=== PATIENT | female | born 2000 | race Caucasian/White ===

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

== ENCOUNTER 2019-03-18 08:44 | Emergency (ER) | payer OTHER ==
--- NOTE | 2019-03-18 09:06 | ED ---
- HPI Summary HPI Summary: 19 year old female LMP january 22 presents for rule out ectopic. She states went to center yesterday and unable to see fetus. She denies abdominal pain. No vaginal bleeding. No nausea and no vomiting. She states she believes she is not that far along. No urinary symptoms. No fevers. - History of Current Complaint Chief Complaint: EDOBProblems Stated Complaint: R/O ECTOPIC PER PT Time Seen by Provider: 03/18/19 08:50 Pain Intensity: 0 - Assessment Hx Now: No Hx Hysterectomy: No - Additional Pertinent History Primary Care Physician: [id number] - Allergies/Home Medications Allergies/Adverse Reactions: Allergies Allergy/AdvReac Type Severity Reaction Status Date / Time fluoxetine [From Prozac] Allergy See Comment Verified 03/18/19 08:58 Home Medications: Home Medications NK [No Home Medications Reported] 03/18/19 [History Confirmed 03/18/19] PMH/Surg Hx/FS Hx/Imm Hx Endocrine/Hematology History: Denies: Hx Anticoagulant Therapy, Hx Diabetes, Hx Thyroid Disease Cardiovascular History: Denies: Hx Hypertension, Hx Pacemaker/ICD Respiratory History: Reports: Hx Asthma - as a child Denies: Hx Chronic Obstructive Pulmonary Disease (COPD) GI History: Denies: Hx Ulcer History: Denies: Hx Renal Disease Musculoskeletal History: Denies: Hx Rheumatoid Arthritis, Hx Osteoporosis Sensory History: Reports: Hx Contacts or Glasses Denies: Hx Hearing Aid Opthamlomology History: Reports: Hx Contacts or Glasses Neurological History: Denies: Hx Dementia, Hx Seizures Psychiatric History: Reports: Hx Anxiety, Hx Attention Deficit Hyperactivity Disorder, Hx Depression, Hx Inpatient Treatment, Hx Community Mental Health Tx, Hx Suicide Attempt Denies: Hx Eating Disorder, Hx of Violent Episodes Against Others, Hx Substance Abuse - Surgical History Surgery Procedure, Year, and Place: wisdom teeth - Immunization History Date of Tetanus Vaccine: Up to Date Immunizations Up to Date: Yes Infectious Disease History: No Infectious Disease History: Denies: Hx Clostridium Difficile, Hx Hepatitis, Hx Human Immunodeficiency Virus (HIV), Hx of Known/Suspected MRSA, Hx Tuberculosis, Hx Known/Suspected VRE , Hx Known/Suspected VRSA, History Other Infectious Disease, Traveled Outside the [place] in Last 30 Days - Family History Known Family History: Positive: Non-Contributory - Social History Alcohol Use: Weekly Hx Substance Use: Yes Substance Use Type: Reports: Marijuana Substance Use Comment - Amount & Last Used: daily Hx Tobacco Use: Yes Smoking Status (MU): Light Every Day Tobacco Smoker Type: Cigarettes Amount Used/How Often: 1/4 PPD Have You Smoked in the Last Year: Yes Review of Systems Negative: Fever Negative: Chest Pain Negative: Shortness Of Breath Negative: Abdominal Pain All Other Systems Reviewed And Are Negative: Yes Physical Exam - Physical Exam Triage Information Reviewed: Yes Vital Signs Reviewed: Yes Appearance: Positive: Well-Appearing Skin: Positive: Warm, Dry Head/Face: Positive: Normal Head/Face Inspection Eyes: Positive: Normal, Conjunctiva Clear ENT: Positive: Pharynx normal Respiratory/Lung Sounds: Positive: Clear to Auscultation, Breath Sounds Present Cardiovascular: Positive: Normal, RRR Abdomen Description: Positive: Nontender, Soft Bowel Sounds: Positive: Present Musculoskeletal: Positive: Normal Neurological: Positive: Normal Psychiatric: Positive: Normal Diagnostics - Vital Signs Vital Signs Temp Pulse Resp BP Pulse Ox 03/18/19 09:03 72 99 03/18/19 08:47 98.1 F 71 16 119/69 98 - Laboratory Result Diagrams: 03/18/19 08:59 03/18/19 08:59 Lab Statement: Any lab studies that have been ordered have been reviewed, and results considered in the medical decision making process. Course/Dx - Course Course Of Treatment: 19 year old female LMP january 22 presents for rule out ectopic. She states went to center yesterday and unable to see fetus. She denies abdominal pain. No vaginal bleeding. No nausea and no vomiting. She states she believes she is not that far along. No urinary symptoms. No fevers. On exam nontender abdomen. hcg 700 which is too small to see fetus. discussed results with patient as has no pain will not get u/s. told follow up with ob. patient understand and agrees with plan. - Differential Diagnosis/HQI/PQRI: Ectopic , Intrauterine , Early - Diagnoses Provider Diagnoses: Discharge - Sign-Out/Discharge Documenting (check all that apply): Patient Departure Patient Received Moderate/Deep Sedation with Procedure: No - Discharge Plan Condition: Good Disposition: HOME Patient Education Materials: First Trimester (ED) Referrals: Kristian Best NP [Primary Care Provider] - Humberto Darden MD [Medical Doctor] - Additional Instructions: it is too early to see a at this point Return to ED if develop abd pain or vaginal bleeding or any new or worsening symptoms Follow up with ob - Billing Disposition and Condition Condition: GOOD Disposition: Home
[2019-03-18 09:13] LABS: ABS Eosinophils 0.1 10^3/ul (0-0.6); ABS Lymphocytes 1.7 10^3/ul (1.0-4.8); ABS Monocytes 0.3 10^3/ul (0-0.8); ABS Neutrophils 2.1 10^3/ul (1.5-7.7); Eosinophil % 3.1 %; Hematocrit 40 % (35-47); Hemoglobin 13.4 g/dL (12.0-16.0); Lymphocyte % 39.6 %; Mean Corpuscular HGB Conc 34 g/dL (31-36); Mean Corpuscular Hemoglobin 28 pg (27-31); Mean Corpuscular Volume 83 fL (80-97); Mean Platelet Volume 7.6 fL (7.4-10.4); Platelet Count 233 10^3/uL (150-450); Red Blood Count 4.84 10^6 /uL (3.70-4.87); Red Cell Distribution Width 15 % (10-15); White Blood Count 4.4 10^3/uL (3.5-10.8)
[2019-03-18 09:38] LABS: HCG Pregnancy 781.57 mIU/mL
[2019-03-18 10:00] LABS: Albumin 4.1 g/dL (3.2-5.2); Albumin/Globulin Ratio 1.3 (1-3); BUN/Creatinine Ratio 17.9 (8-20); Calcium 9.5 mg/dL (8.6-10.3); EGFR African American 113.9 (>60); EGFR Non-African American 94.2 (>60); Globulin 3.2 g/dL (2-4); Potassium 4.2 mmol/L (3.5-5.0); Total Bilirubin 0.3 mg/dL (0.2-1.0); Total Protein 7.3 g/dL (6.4-8.9)
[2019-03-18 10:05] VITALS: BP 111/67
[2019-03-18 10:27] LABS: Urine Appearance Cloudy; Urine Bilirubin Negative (Negative); Urine Blood Negative (Negative); Urine Color Yellow; Urine Glucose Negative (Negative); Urine Ketones Negative (Negative); Urine Nitrite Negative (Negative); Urine Protein Negative (Negative); Urine Urobilinogen Negative (Negative)
== END 2019-03-18 10:05 | disposition home or self-care (01) ==
LOC: ED 08:44
DX: Z34.90 Encounter for supervision of normal pregnancy, unspecified, unspecified trimester (principal); O99.330 Smoking (tobacco) complicating pregnancy, unspecified trimester; F17.210 Nicotine dependence, cigarettes, uncomplicated; Z3A.00 Weeks of gestation of pregnancy not specified
CPT/HCPCS: 36415; 80053; 81003; 84702; 85025; 86850; 86900; 86901; 99282

== ENCOUNTER 2019-03-22 10:14 | Emergency (ER) | payer OTHER ==
[2019-03-22 12:47] LABS: ABS Eosinophils 0.2 10^3/ul (0-0.6); ABS Lymphocytes 1.6 10^3/ul (1.0-4.8); ABS Monocytes 0.4 10^3/ul (0-0.8); ABS Neutrophils 3.8 10^3/ul (1.5-7.7); Eosinophil % 2.7 %; Hematocrit 42 % (35-47); Hemoglobin 13.8 g/dL (12.0-16.0); Lymphocyte % 26.7 %; Mean Corpuscular HGB Conc 33 g/dL (31-36); Mean Corpuscular Hemoglobin 28 pg (27-31); Mean Corpuscular Volume 83 fL (80-97); Mean Platelet Volume 7.4 fL (7.4-10.4); Platelet Count 220 10^3/uL (150-450); Red Blood Count 5.03 10^6 /uL (3.70-4.87); Red Cell Distribution Width 15 % (10-15); White Blood Count 5.9 10^3/uL (3.5-10.8)
[2019-03-22 12:55] LABS: Activated Partial Thrombo Time 34.8 seconds (26.0-38.0); INR 0.92 (0.82-1.09)
[2019-03-22 13:04] LABS: Albumin 4.4 g/dL (3.2-5.2); Albumin/Globulin Ratio 1.6 (1-3); BUN/Creatinine Ratio 20.7 (8-20); Calcium 10.2 mg/dL (8.6-10.3); EGFR African American 160.4 (>60); EGFR Non-African American 132.5 (>60); Globulin 2.8 g/dL (2-4); Potassium 4.5 mmol/L (3.5-5.0); Total Bilirubin 0.3 mg/dL (0.2-1.0); Total Protein 7.2 g/dL (6.4-8.9)
[2019-03-22 15:28] VITALS: BP 122/75
[2019-03-22] MEDS ORDERED: Lactated Ringers 1000 ML Bag* 1,000 ML IV SCH (16:00)
--- NOTE | 2019-03-23 06:23 | ED ---
Abdominal Pain/Female - HPI Summary HPI Summary: Patient is a 4 weeks female presenting to the ED with bilateral lower abdominal cramping and bleeding times one day. She states the bleeding began as spotting and developed into a large amount of bleeding with clots over the past 5-6 hours. She denies any nausea or vomiting. Denies any fevers, sweats, chills. Patient states she is otherwise healthy. She denies any dizziness, fatigue or any other symptoms. - History of Current Complaint Chief Complaint: EDVaginalBleeding Stated Complaint: "3 WEEKS W/BLEEDING PER PT" Time Seen by Provider: 03/22/19 11:10 Hx Obtained From: Family/Chemical Librarian Hx Last Menstrual Period: 11/25/18 ?: No Onset/Duration: Sudden Onset Timing: Constant Severity Initially: Moderate Severity Currently: Moderate Pain Intensity: 2 Pain Scale Used: 0-10 Numeric Radiates: No Character: Cramping Aggravating Factor(s): Nothing Alleviating Factor(s): Nothing Associated Signs and Symptoms: Positive: Negative Allergies/Adverse Reactions: Allergies Allergy/AdvReac Type Severity Reaction Status Date / Time fluoxetine [From Prozac] Allergy See Comment Verified 03/22/19 11:20 PMH/Surg Hx/FS Hx/Imm Hx Previously Healthy: Yes Endocrine/Hematology History: Denies: Hx Anticoagulant Therapy, Hx Diabetes, Hx Thyroid Disease Cardiovascular History: Denies: Hx Hypertension, Hx Pacemaker/ICD Respiratory History: Reports: Hx Asthma - as a child Denies: Hx Chronic Obstructive Pulmonary Disease (COPD) GI History: Denies: Hx Ulcer History: Denies: Hx Renal Disease Musculoskeletal History: Denies: Hx Rheumatoid Arthritis, Hx Osteoporosis Sensory History: Reports: Hx Contacts or Glasses Denies: Hx Hearing Aid Opthamlomology History: Reports: Hx Contacts or Glasses Neurological History: Denies: Hx Dementia, Hx Seizures Psychiatric History: Reports: Hx Anxiety, Hx Attention Deficit Hyperactivity Disorder, Hx Depression, Hx Inpatient Treatment, Hx Community Mental Health Tx, Hx Suicide Attempt Denies: Hx Eating Disorder, Hx of Violent Episodes Against Others, Hx Substance Abuse - Surgical History Surgery Procedure, Year, and Place: wisdom teeth - Immunization History Date of Tetanus Vaccine: Up to Date Infectious Disease History: No Infectious Disease History: Denies: Hx Clostridium Difficile, Hx Hepatitis, Hx Human Immunodeficiency Virus (HIV), Hx of Known/Suspected MRSA, Hx Tuberculosis, Hx Known/Suspected VRE , Hx Known/Suspected VRSA, History Other Infectious Disease, Traveled Outside the [place] in Last 30 Days - Family History Known Family History: Positive: Non-Contributory - Social History Occupation: Unemployed Lives: With Family Alcohol Use: None Hx Substance Use: Yes Substance Use Type: Reports: None Substance Use Comment - Amount & Last Used: daily Hx Tobacco Use: Yes Smoking Status (MU): Former Smoker Type: Cigarettes Amount Used/How Often: 1/4 PPD Have You Smoked in the Last Year: Yes Review of Systems Negative: Fever, Chills, Fatigue, Skin Diaphoresis Negative: Palpitations, Chest Pain Negative: Shortness Of Breath, Cough Positive: Abdominal Pain. Negative: Vomiting, Diarrhea, Nausea Genitourinary: Negative Positive: no symptoms reported, see HPI Neurological: Negative All Other Systems Reviewed And Are Negative: Yes Physical Exam Triage Information Reviewed: Yes Vital Signs On Initial Exam: Initial Vitals Temp Pulse Resp BP Pulse Ox 97.4 F 77 18 131/86 100 03/22/19 10:16 03/22/19 10:16 03/22/19 10:16 03/22/19 10:16 03/22/19 10:16 Vital Signs Reviewed: Yes Appearance: Positive: Well-Appearing, Well-Nourished Skin: Positive: Skin Color Reflects Adequate Perfusion Head/Face: Positive: Normal Head/Face Inspection Eyes: Positive: EOMI, Conjunctiva Clear Neck: Positive: Supple, No Lymphadenopathy Respiratory/Lung Sounds: Positive: Clear to Auscultation, Breath Sounds Present Cardiovascular: Positive: RRR, Pulses are Symmetrical in both Upper and Lower Extremities Abdomen Description: Positive: Other: - tenderness to the bilateral lower quadrants Musculoskeletal: Positive: Strength/ROM Intact Neurological: Positive: Sensory/Motor Intact, Alert, Oriented to Person Place, Time, Speech Normal Psychiatric: Positive: Affect/Mood Appropriate Diagnostics - Vital Signs Vital Signs Temp Pulse Resp BP Pulse Ox 03/22/19 15:26 97.9 F 68 16 122/75 99 03/22/19 14:47 97.1 F 75 17 124/73 97 03/22/19 10:16 97.4 F 77 18 131/86 100 - Laboratory Lab Results: Lab Results 03/22/19 03/22/19 03/22/19 Range/Units 12:39 12:39 12:39 WBC 5.9 (3.5-10.8) 10^3/uL RBC 5.03 H (3.70-4.87) 10^6 /uL Hgb 13.8 (12.0-16.0) g/dL Hct 42 (35-47) % MCV 83 (80-97) fL MCH 28 (27-31) pg MCHC 33 (31-36) g/dL RDW 15 (10-15) % Plt Count 220 (150-450) 10^3/uL MPV 7.4 (7.4-10.4) fL Neut % (Auto) 63.5 % Lymph % (Auto) 26.7 % [place] % (Auto) 6.9 % Eos % (Auto) 2.7 % Baso % (Auto) 0.2 % Absolute Neuts (auto) 3.8 (1.5-7.7) 10^3/ul Absolute Lymphs (auto) 1.6 (1.0-4.8) 10^3/ul Absolute Monos (auto) 0.4 (0-0.8) 10^3/ul Absolute Eos (auto) 0.2 (0-0.6) 10^3/ul Absolute Basos (auto) 0.0 (0-0.2) 10^3/ul Absolute Nucleated RBC 0.0 10^3/ul Nucleated RBC % 0.0 INR (Anticoag Therapy) 0.92 (0.82-1.09) APTT 34.8 (26.0-38.0) seconds Sodium 136 (135-145) mmol/L Potassium 4.5 (3.5-5.0) mmol/L Chloride 103 (101-111) mmol/L Carbon Dioxide 27 (22-32) mmol/L Anion Gap 6 (2-11) mmol/L BUN 12 (6-24) mg/dL Creatinine 0.58 (0.51-0.95) mg/dL Est GFR ( Amer) 160.4 (>60) Est GFR (Non-Af Amer) 132.5 (>60) BUN/Creatinine Ratio 20.7 H (8-20) Glucose 96 (70-100) mg/dL Lactic Acid (0.5-2.0) mmol/L Calcium 10.2 (8.6-10.3) mg/dL Total Bilirubin 0.30 (0.2-1.0) mg/dL AST 14 (13-39) U/L ALT 16 (7-52) U/L Alkaline Phosphatase 38 (34-104) U/L Total Protein 7.2 (6.4-8.9) g/dL Albumin 4.4 (3.2-5.2) g/dL Globulin 2.8 (2-4) g/dL Albumin/Globulin Ratio 1.6 (1-3) Beta HCG, Quant 2712.00 mIU/mL Blood Type Antibody Screen 03/22/19 03/22/19 Range/Units 12:39 12:39 WBC (3.5-10.8) 10^3/uL RBC (3.70-4.87) 10^6 /uL Hgb (12.0-16.0) g/dL Hct (35-47) % MCV (80-97) fL MCH (27-31) pg MCHC (31-36) g/dL RDW (10-15) % Plt Count (150-450) 10^3/uL MPV (7.4-10.4) fL Neut % (Auto) % Lymph % (Auto) % [place] % (Auto) % Eos % (Auto) % Baso % (Auto) % Absolute Neuts (auto) (1.5-7.7) 10^3/ul Absolute Lymphs (auto) (1.0-4.8) 10^3/ul Absolute Monos (auto) (0-0.8) 10^3/ul Absolute Eos (auto) (0-0.6) 10^3/ul Absolute Basos (auto) (0-0.2) 10^3/ul Absolute Nucleated RBC 10^3/ul Nucleated RBC % INR (Anticoag Therapy) (0.82-1.09) APTT (26.0-38.0) seconds Sodium (135-145) mmol/L Potassium (3.5-5.0) mmol/L Chloride (101-111) mmol/L Carbon Dioxide (22-32) mmol/L Anion Gap (2-11) mmol/L BUN (6-24) mg/dL Creatinine (0.51-0.95) mg/dL Est GFR ( Amer) (>60) Est GFR (Non-Af Amer) (>60) BUN/Creatinine Ratio (8-20) Glucose (70-100) mg/dL Lactic Acid 0.9 (0.5-2.0) mmol/L Calcium (8.6-10.3) mg/dL Total Bilirubin (0.2-1.0) mg/dL AST (13-39) U/L ALT (7-52) U/L Alkaline Phosphatase (34-104) U/L Total Protein (6.4-8.9) g/dL Albumin (3.2-5.2) g/dL Globulin (2-4) g/dL Albumin/Globulin Ratio (1-3) Beta HCG, Quant mIU/mL Blood Type B Positive Antibody Screen Negative Result Diagrams: 03/22/19 12:39 03/22/19 12:39 Lab Statement: Any lab studies that have been ordered have been reviewed, and results considered in the medical decision making process. Abdominal Pain Fem Course/Dx - Course Course Of Treatment: On physical examination, patient appears well, lung CT, RRR. Abdominal tenderness to light palpation to the bilateral lower quadrants. Labs obtained including type and screen. Patient is B+. Transvaginal ultrasound shows a gestational sac appears to be below in the cervix consistent with impending . The right ovary is normal. No pole is identified. Left ovary is not visualized. Discussed this with patient. This patient is B+, rhogam is not considered. HCG 2712. Patient is discharged with f/u to OBGYN in 2 days for recheck of HCG. - Diagnoses Provider Diagnoses: Threatened Discharge - Sign-Out/Discharge Documenting (check all that apply): Patient Departure Patient Received Moderate/Deep Sedation with Procedure: No - Discharge Plan Condition: Stable Disposition: HOME Prescriptions: traMADol TAB* [Ultram*] 50 mg PO Q8H PRN #6 tab MDD 3 PRN Reason: Pain Patient Education Materials: Threatened Miscarriage (ED) Referrals: Kristian Best NP [Primary Care Provider] - Vandana Cobb MD [Medical Doctor] - Additional Instructions: Please follow up with OBGYN in 3 days for a recheck Call their office on Sunday morning Tylenol and tramadol may be used for pain control Heating pads may help Do not wear tampons at this time and only use pads - Billing Disposition and Condition Condition: STABLE Disposition: Home
== END 2019-03-22 15:26 | disposition home or self-care (01) ==
LOC: ED 10:14
DX: O20.0 Threatened abortion (principal); Z3A.01 Less than 8 weeks gestation of pregnancy; Z87.891 Personal history of nicotine dependence
CPT/HCPCS: 36415; 76817; 80053; 83605; 84702; 85025; 85610; 85730; 86850; 86900; 86901; 96360; 96361; 99283

== ENCOUNTER 2019-06-12 14:55 | Emergency (ER) | payer OTHER ==
--- NOTE | 2019-06-12 15:24 | ED ---
Psychiatric Complaint - HPI Summary HPI Summary: Patient is a 19 y/o F w/ reported Hx of PTSD, BPD, depression and anxiety who presents to [facility] for SI and justin. She reports that she has had these thoughts , "since " but states that her present episode has been present for the past three weeks. She reports that she does not take any medications and does not have a therapist. She states that she took cocaine yesterday and used marijuana today. She notes rare alcohol usage but denies tobacco usage. On triage, pain is denied. Home medications and allergies are reviewed. - History Of Current Complaint Chief Complaint: EDSuicidal Time Seen by Provider: 06/12/19 15:10 Hx Obtained From: Patient Hx Last Menstrual Period: 11/25/18 Onset/Duration: Lasting Weeks - 3, Still Present Timing: Weeks - 3 Severity Currently: None - pain denied Character: Manic Has Suicidal: Reports: Thoughts - Allergies/Home Medications Allergies/Adverse Reactions: Allergies Allergy/AdvReac Type Severity Reaction Status Date / Time fluoxetine [From Prozac] Allergy See Comment Verified 06/12/19 14:58 Home Medications: Home Medications NK [No Home Medications Reported] 06/12/19 [History Confirmed 06/12/19] PMH/Surg Hx/FS Hx/Imm Hx Endocrine/Hematology History: Denies: Hx Anticoagulant Therapy, Hx Diabetes, Hx Thyroid Disease Cardiovascular History: Denies: Hx Hypertension, Hx Pacemaker/ICD Respiratory History: Reports: Hx Asthma - as a child Denies: Hx Chronic Obstructive Pulmonary Disease (COPD) GI History: Denies: Hx Ulcer History: Denies: Hx Renal Disease Musculoskeletal History: Denies: Hx Rheumatoid Arthritis, Hx Osteoporosis Sensory History: Reports: Hx Contacts or Glasses Denies: Hx Hearing Aid Opthamlomology History: Reports: Hx Contacts or Glasses Neurological History: Denies: Hx Dementia, Hx Seizures Psychiatric History: Reports: Hx Anxiety, Hx Attention Deficit Hyperactivity Disorder, Hx Depression, Hx Post Traumatic Stress Disorder, Hx Inpatient Treatment, Hx Community Mental Health Tx, Hx Bipolar Disorder, Hx Suicide Attempt Denies: Hx Eating Disorder, Hx of Violent Episodes Against Others, Hx Substance Abuse - Surgical History Surgery Procedure, Year, and Place: wisdom teeth - Immunization History Date of Tetanus Vaccine: Up to Date Infectious Disease History: No Infectious Disease History: Denies: Hx Clostridium Difficile, Hx Hepatitis, Hx Human Immunodeficiency Virus (HIV), Hx of Known/Suspected MRSA, Hx Tuberculosis, Hx Known/Suspected VRE , Hx Known/Suspected VRSA, History Other Infectious Disease, Traveled Outside the [place] in Last 30 Days - Family History Known Family History: Negative: Cardiac Disease, Hypertension, Diabetes - Social History Alcohol Use: Rare Hx Substance Use: Yes Substance Use Type: Reports: Cocaine, Marijuana Substance Use Comment - Amount & Last Used: daily Hx Tobacco Use: Yes Smoking Status (MU): Former Smoker Type: Cigarettes Amount Used/How Often: 1/4 PPD Have You Smoked in the Last Year: Yes Review of Systems Negative: Fever - on vitals, temp is 98.4 F Psychological: Other - positive - SI and jusitn All Other Systems Reviewed And Are Negative: Yes Physical Exam - Summary Physical Exam Summary: VITAL SIGNS: Reviewed. GENERAL: Patient is a well-developed and nourished female who is lying comfortable in the stretcher. Patient is not in any acute respiratory distress. HEAD AND FACE: No signs of trauma. No ecchymosis, hematomas or skull depressions. No sinus tenderness. EYES: PERRLA, EOMI x 2, No injected conjunctiva, no nystagmus. EARS: Hearing grossly intact. Ear canals and tympanic membranes are within normal limits. MOUTH: Oropharynx within normal limits. NECK: Supple, trachea is midline, no adenopathy, no JVD, no carotid bruit, no c- spine tenderness, neck with full ROM. CHEST: Symmetric, no tenderness at palpation. LUNGS: Clear to auscultation bilaterally. No wheezing or crackles. CVS: Regular rate and rhythm, S1 and S2 present, no murmurs or gallops appreciated. ABDOMEN: Soft, non-tender. No signs of distention. No rebound, no guarding, and no masses palpated. Bowel sounds are normal. EXTREMITIES: FROM in all major joints, no edema, no cyanosis or clubbing. NEURO: Alert and oriented x 3. No acute neurological deficits. Speech is normal and follows commands. SKIN: Dry and warm. Triage Information Reviewed: Yes Vital Signs On Initial Exam: Initial Vitals Temp Pulse Resp BP Pulse Ox 98.4 F 112 15 151/91 99 06/12/19 14:58 06/12/19 14:58 06/12/19 14:58 06/12/19 14:58 06/12/19 14:58 Vital Signs Reviewed: Yes Diagnostics - Vital Signs Vital Signs Temp Pulse Resp BP Pulse Ox 06/12/19 14:58 98.4 F 112 15 151/91 99 - Laboratory Result Diagrams: 06/12/19 15:39 06/12/19 15:39 Lab Statement: Any lab studies that have been ordered have been reviewed, and results considered in the medical decision making process. Course/Dx - Course Assessment/Plan: Patient is a 19 y/o F w/ reported Hx of PTSD, BPD, depression and anxiety who presents to [facility] for SI and justin. She reports that she has had these thoughts, "since " but states that her present episode has been present for the past three weeks. She reports that she does not take any medications and does not have a therapist. She states that she took cocaine yesterday and used marijuana today. She notes rare alcohol usage but denies tobacco usage. Blood work w/o a significant abnormality. She is medically cleared. She is awaiting a MHE. Patient is hemodynamically stable and A+O x 3. Patient will be signed out to Dr. Elliott at shift change. - Differential Dx/Clinical Impression Differential Diagnosis/HQI/PQRI: Positive: Depression, Suicidal Ideation Provider Diagnosis: Mood disorder Discharge ED - Sign-Out/Discharge Documenting (check all that apply): Sign-Out Patient Signing out patient TO: Cliff Elliott - Discharge Plan Condition: Stable Disposition: HOME Patient Education Materials: Mood Disorders (ED) Referrals: Toyin Galicia NP [Primary Care Provider] - Additional Instructions: Per completion of a mental health evaluation, you are cleared for release and do not require inpatient psychiatric hospitalization at this time. Please go to nearest emergency room or call 911 if safety concerns arise or condition worsens. Please call [facility]....................... [phone] for intake appointment. Also call your primary physician to be seen jermaine so that you may start medication until you have the opportunity to be seen for medication adjustment by the psychiatrist Important Phone Numbers: [facility] [phone] Suicide Prevention and Crisis Services........................ [phone] National Suicide Prevention Lifeline............................ [phone] (8255) [facility]....................... [phone] Alcoholics Anonymous............................................... [facility].............. [phone] [facility] Police.............................................. [phone] Substance Abuse Treatment Programs [place] [facility] - Billing Disposition and Condition Condition: STABLE - Attestation Statements Document Initiated by Joseibignacia: Yes Documenting Scribe: SAFIA BRANCH Provider For Whom William is Documenting (Include Credential): CLIFF ELLIOTT MD Scribe Attestation: ISAFIA, scribed for CLIFF ELLIOTT MD on 06/13/19 at 0906. Scribe Documentation Reviewed: Yes Provider Attestation: The documentation as recorded by the SAFIA cardoso accurately reflects the service I personally performed and the decisions made by me, CLIFF ELLIOTT MD Status of Scribe Document: Viewed
[2019-06-12 15:49] LABS: ABS Eosinophils 0.1 10^3/ul (0-0.6); ABS Lymphocytes 1.4 10^3/ul (1.0-4.8); ABS Monocytes 0.4 10^3/ul (0-0.8); ABS Neutrophils 3.6 10^3/ul (1.5-7.7); Eosinophil % 2.2 %; Hematocrit 40 % (35-47); Hemoglobin 13.9 g/dL (12.0-16.0); Lymphocyte % 25.8 %; Mean Corpuscular HGB Conc 35 g/dL (31-36); Mean Corpuscular Hemoglobin 29 pg (27-31); Mean Corpuscular Volume 82 fL (80-97); Mean Platelet Volume 6.9 fL (7.4-10.4); Platelet Count 268 10^3/uL (150-450); Red Blood Count 4.81 10^6 /uL (3.70-4.87); Red Cell Distribution Width 15 % (10-15); White Blood Count 5.5 10^3/uL (3.5-10.8)
[2019-06-12 16:03] LABS: ALT 14 U/L (7-52); AST 16 U/L (13-39); Albumin 4.3 g/dL (3.2-5.2); Albumin/Globulin Ratio 1.6 (1-3); Alkaline Phosphatase 40 U/L (34-104); Anion Gap 5 mmol/L (2-11); BUN/Creatinine Ratio 14.9 (8-20); Blood Urea Nitrogen 13 mg/dL (6-24); CO2 Carbon Dioxide 26 mmol/L (22-32); Calcium 9.2 mg/dL (8.6-10.3); Chloride 105 mmol/L (101-111); EGFR African American 100.4 (>60); Globulin 2.7 g/dL (2-4); Glucose 106 mg/dL (70-100); Potassium 3.6 mmol/L (3.5-5.0); Sodium 136 mmol/L (135-145)
[2019-06-12 16:43] LABS: Acetaminophen < 15 mcg/mL; Alcohol < 10 mg/dL (<10); Salicylate < 2.50 mg/dL (<30)
[2019-06-12 17:13] LABS: Urine Appearance Cloudy; Urine Bilirubin Negative (Negative); Urine Blood Negative (Negative); Urine Color Yellow; Urine Glucose Negative (Negative); Urine Ketones Negative (Negative); Urine Nitrite Negative (Negative); Urine Protein Negative (Negative); Urine Specific Gravity 1.011 (1.010-1.030); Urine Urobilinogen Negative (Negative)
[2019-06-12 17:25] LABS: Urine Benzodiazepine Screen None Detected (None Detect); Urine Opiates Screen None Detected (None Detect)
--- NOTE | 2019-06-12 19:23 | ED ---
Progress - Progress Note Progress Note: The pt is a sign out from Dr. Sylvester pending MHE and disposition. Psych evaluation is in process. Patient will be signed out to Dr. Sylvester pending disposition per psychiatry. Course/Dx - Course Course Of Treatment: The pt is a sign out from Dr. Sylvester pending MHE and disposition. Psych evaluation has been completed. Pt will be a sign out to Dr. Higinio reagan disposition and psych referral. - Diagnoses Provider Diagnoses: Depression Discharge ED - Sign-Out/Discharge Documenting (check all that apply): Sign-Out Patient - Psych evaluation has been completed. Pt will be a sign out to Dr. Higinio reagan disposition and psych referral., Receiving Sign-Out Signing out patient TO: Yoandy Sylvester Receiving patient FROM: Yoandy Sylvester Patient Received Moderate/Deep Sedation with Procedure: No - Discharge Plan Condition: Stable Disposition: HOME Referrals: Toyin Galicia, [employer] [Primary Care Provider] - - Billing Disposition and Condition Condition: STABLE Disposition: Home - Attestation Statements Document Initiated by Scribe: Yes Documenting Scribe: Brendan Godinez Provider For Whom Scribe is Documenting (Include Credential): Cliff Rg MD Scribe Attestation: Brendan Hyman, scribed for Cliff Rg MD on 06/13/19 at 0648. Scribe Documentation Reviewed: Yes Provider Attestation: The documentation as recorded by the Brendan cardoso accurately reflects the service I personally performed and the decisions made by , Cliff Rg MD Status of Scribe Document: Viewed
[2019-06-13 07:17] VITALS: BP 127/83
--- NOTE | 2019-06-13 07:18 | ED ---
Progress - Progress Note Progress Note: The patient is a sign-out from Dr. Cliff Rg MD, to Dr. Yoadny Sylvester MD, at change of shift at 0700 on 06/13/19, pending MHE and disposition. 07 - Manuel Damico, mental health vocational counselor, reports that the patient is safe for discharge, per Dr. Harrell, psychiatry, with dx of mood disorder, and she will follow up with outpatient treatment. - Consult/PCP Time Called: 22:00 Course/Dx - Course Course Of Treatment: The patient is a sign-out from Dr. Cliff Rg MD, to Dr. Yoandy Sylvester MD, at change of shift at 0700 on 06/13/19, pending MHE and disposition. 07 - Manuel Damico, mental health vocational counselor, reports that the patient is safe for discharge, per Dr. Harrell, psychiatry, with dx of mood disorder, and she will follow up with outpatient treatment. - Diagnoses Provider Diagnoses: Mood disorder - Provider Notifications Discussed Care Of Patient With: Manuel Damico - mental health vocational counselor Time Discussed With Above Provider: 07:10 Instructed by Provider To: Other - Patient is clear for d/c per Dr. Harrell from psychiatry with dx of mood disorder and will follow up with outpatient treatment. Discharge ED - Sign-Out/Discharge Documenting (check all that apply): Patient Departure - Patient will be discharged home., Receiving Sign-Out Receiving patient FROM: Cliff Rg - Patient is a sign-out from Dr. Cliff Rg MD, at change of shift 0700 on 06/13/19, pending MHE and disposition. Patient Received Moderate/Deep Sedation with Procedure: No - Discharge Plan Condition: Stable Disposition: HOME Patient Education Materials: Mood Disorders (ED) Referrals: Toyin Galicia NP [Primary Care Provider] - Additional Instructions: Per completion of a mental health evaluation, you are cleared for release and do not require inpatient psychiatric hospitalization at this time. Please go to nearest emergency room or call 911 if safety concerns arise or condition worsens. Please call [facility]....................... for intake appointment. Also call your primary physician to be seen jermaine so that you may start medication until you have the opportunity to be seen for medication adjustment by the psychiatrist Important Phone Numbers: [facility] Unit [phone] Suicide Prevention and Crisis Services........................ [phone] National Suicide Prevention Lifeline............................ [phone] (7928) [facility]....................... [phone] Alcoholics Anonymous............................................... [facility].............. [phone] [facility] Police.............................................. Substance Abuse Treatment Programs [place] [facility] Alcohol [facility] Drug [facility] - Billing Disposition and Condition Condition: STABLE Disposition: Home - Attestation Statements Document Initiated by Joseibe: Yes Documenting Scribe: Susan Pressley Provider For Whom William is Documenting (Include Credential): Dr. Yoandy Sylvester MD Scribe Attestation: I, Susan Pressley scribed for Dr. Yoandy Sylvester MD on 06/13/19 at 0906. Scribe Documentation Reviewed: Yes Provider Attestation: The documentation as recorded by the Susan cardoso accurately reflects the service I personally performed and the decisions made by me, Dr. Yoandy Sylvester MD Status of Scribe Document: Viewed
== END 2019-06-13 06:52 | disposition home or self-care (01) ==
LOC: ED 14:55
DX: F39 Unspecified mood [affective] disorder (principal); F32.9 Major depressive disorder, single episode, unspecified; F43.10 Post-traumatic stress disorder, unspecified; F41.9 Anxiety disorder, unspecified; Z88.8 Allergy status to other drugs, medicaments and biological substances; Z87.891 Personal history of nicotine dependence
CPT/HCPCS: 36415; 80053; 80307; 80320; 80329; 81003; 84443; 85025; 99285; G0480

== ENCOUNTER 2019-08-07 17:41 | Emergency (ER) | payer SELFPAY ==
[2019-08-07 17:46] VITALS: BP 142/96
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
[2019-08-07] MEDS ORDERED: Ketorolac INJ* 30 MG/ML 1 ML VIAL IM ONE (19:29)
== END 2019-08-07 20:30 | disposition home or self-care (01) ==
LOC: ED 17:41
DX: S09.90XA Unspecified injury of head, initial encounter (principal); M54.2 Cervicalgia; M54.6 Pain in thoracic spine; V49.40XA Driver injured in collision with unspecified motor vehicles in traffic accident, initial encounter; Y92.410 Unspecified street and highway as the place of occurrence of the external cause; Z88.8 Allergy status to other drugs, medicaments and biological substances; Z87.891 Personal history of nicotine dependence
CPT/HCPCS: 72125; 72128; 96372; 99282; J1885